=== PATIENT | male | born 1995 | race Caucasian/White ===

== ENCOUNTER 2018-04-13 18:46 | Emergency (ER) | payer OTHER, BC ==
[2018-04-13 18:50] VITALS: BP 114/93
[2018-04-13] MEDS ORDERED: HYDROcod/ACETAM 5/325 MG TABLET PO STA (19:05)
--- NOTE | 2018-04-13 19:06 | ED Physician Documentation ---
PD HPI LOWER EXT INJURY - Stated complaint Stated Complaint: TOE INJURY - Chief complaint Chief Complaint: Ext Problem - History obtained from History obtained from: Patient - History of Present Illness PD HPI LOW EXT INJURY LOCATION: Other (He dropped something heavy on his left big toe at work today with severe pain. No other injuries.) Review of Systems Constitutional: reports: Reviewed and negative Throat: reports: Reviewed and negative Cardiac: reports: Reviewed and negative PD PAST MEDICAL HISTORY - Past Medical History Past Medical History: No - Past Surgical History Past Surgical History: No - Present Medications Home Medications: Ambulatory Orders Medication Instructions Recorded Confirmed Ibuprofen [Motrin] 800 mg PO Q8H PRN #30 tablet 04/13/18 - Allergies Allergies/Adverse Reactions: Allergies Allergy/AdvReac Type Severity Reaction Status Date / Time No Known Drug Allergies Allergy Verified 04/13/18 18:50 - Social History Does the pt smoke?: No Smoking Status: Never smoker Does the pt drink ETOH?: Yes Does the pt have substance abuse?: Yes Substance Use and Type: Marijuana - Immunizations Immunizations are current?: Yes PD ED PE NORMAL - Vitals Vital signs reviewed: Yes - General General: Alert and oriented X 3, No acute distress - Extremities Extremities: Other (The proximal phalanx of the left big toe is very tender, no deformity or subungual hematoma, normal neurovascular status at the tip.) - Neuro Neuro: Alert and oriented X 3, Normal speech Results - Vitals Vitals: Vital Signs - 24 hr 04/13/18 18:48 Temperature 37.0 C Heart Rate 82 Respiratory 15 Rate Blood Pressure 114/93 H O2 Saturation 97 Oxygen O2 Source Room air - Rads (name of study) L great toe XR Radiology: EMP read contemporaneously (normal) PD MEDICAL DECISION MAKING - ED course ED course: He was given four Vicodin to go. Departure - Departure Disposition: 01 Home, Self Care Clinical Impression: Crushing injury of toe of left foot Qualifiers: Encounter type: initial encounter Qualified Code(s): S97.102A - Crushing injury of unspecified left toe(s), initial encounter Condition: Good Record reviewed to determine appropriate education?: Yes Instructions: ED Crush Injury Toe No Fx Prescriptions: Ibuprofen [Motrin] 800 mg PO Q8H PRN #30 tablet PRN Reason: PAIN &/OR FEVER Comments: Recheck with your doctor in 1 week if not better. Return if worse. Your blood pressure was elevated today on check into the emergency department. This does not mean that you have hypertension, it is a common phenomenon to come to the emergency department and have elevated blood pressure. I recommend that you see your primary care physician within the week to have it rechecked when you are feeling better. Forms: Activity restrictions
[2018-04-13] MEDS ORDERED: HYDROcod/ACET 5/325 Prepack 4 PO STA (19:39)
--- NOTE | 2018-04-13 19:59 | XRAY Preliminary Report ---
Exam: XR TOE(S) LT IMPRESSION: No fracture or subluxation of the left first toe. [facility] SITE ID: [id number]
--- NOTE | 2018-04-13 20:00 | XRAY Report ---
EXAM: LEFT TOE RADIOGRAPHY EXAM DATE: 04/13/2018 07:37 PM. CLINICAL HISTORY: Big toe inj. COMPARISON: None. TECHNIQUE: 3 views. FINDINGS: Bones: Normal. No fracture or bone lesion. Joints: Joint space and alignment appear satisfactory. Soft Tissues: There is soft tissue swelling. IMPRESSION: No fracture or subluxation of the left first toe. [facility] Referring Provider Line: [phone] SITE ID: [id number]
--- NOTE | 2018-05-05 15:25 | ED Physician Documentation ---
ED Addendum - Addendum Addendum: 05/05/18 15:24 He may return to work, full duty at this juncture. Shaun Edgar MD
== END 2018-04-13 20:11 | disposition home or self-care (01) ==
LOC: ED 18:46
DX: S97.112A Crushing injury of left great toe, initial encounter (principal); W20.8XXA Other cause of strike by thrown, projected or falling object, initial encounter; Y99.0 Civilian activity done for income or pay; R03.0 Elevated blood-pressure reading, without diagnosis of hypertension
CPT/HCPCS: 73660; 99283; A9270; 96365; 96375; 99284

== ENCOUNTER 2018-10-24 15:46 | Emergency (ER) | payer BC, OTHER ==
[2018-10-24 15:58] VITALS: BP 121/77
[2018-10-24] MEDS ORDERED: HYDROcod/ACETAM 5/325 MG TABLET PO STA (16:20)
--- NOTE | 2018-10-24 16:22 | ED Physician Documentation ---
PD HPI FEMALE - Stated complaint Stated Complaint: L TESTICLE PX - Chief complaint Chief Complaint: Abd Pain - History obtained from History obtained from: Patient - History of Present Illness Timing - onset: Other (2 days of left testicular pain without swelling. It waxes and wanes and is at times severe. It is worse to walk. It is worse to lift. He notes no swelling. He is not concerned about STDs.) Review of Systems Constitutional: denies: Fever, Chills Throat: reports: Reviewed and negative Cardiac: reports: Reviewed and negative Respiratory: reports: Reviewed and negative GI: reports: Reviewed and negative PD PAST MEDICAL HISTORY - Past Medical History Past Medical History: No - Past Surgical History Past Surgical History: No - Present Medications Home Medications: Ambulatory Orders Medication Instructions Recorded Confirmed Hydrocodone/Acetaminophen 1 - 2 each PO Q6H PRN #14 tablet 10/24/18 [Hydrocodon-Acetaminophen 5-325] RX: Doxycycline Hyclate 100 mg PO BID #30 capsule 10/24/18 - Allergies Allergies/Adverse Reactions: Allergies Allergy/AdvReac Type Severity Reaction Status Date / Time No Known Drug Allergies Allergy Verified 10/24/18 15:58 - Social History Does the pt smoke?: No Smoking Status: Never smoker Does the pt drink ETOH?: Yes Does the pt have substance abuse?: Yes - Family History Family history: reports: Non contributory - Immunizations Immunizations are current?: Yes PD ED PE NORMAL - Vitals Vital signs reviewed: Yes - General General: Alert and oriented X 3, No acute distress - HEENT HEENT: PERRL, EOMI - Neck Neck: Supple, no meningeal sign, No bony TTP - Cardiac Cardiac: RRR, No murmur - Respiratory Respiratory: No respiratory distress, Clear bilaterally - Abdomen Abdomen: Normal bowel sounds, Soft, Non tender - Male Male : Other (Testicles are not swollen. He has mild tenderness of the left superior testicle. Positive cremaster reflexes bilaterally. No hernia mass.) - Back Back: No CVA TTP, No spinal TTP - Derm Derm: Normal color, Warm and dry - Extremities Extremities: No deformity, No edema, No calf tenderness / cord - Neuro Neuro: Alert and oriented X 3, Normal speech - Psych Psych: Normal mood, Normal affect Results - Vitals Vitals: Vital Signs - 24 hr 10/24/18 15:54 Temperature 37.0 C Heart Rate 99 Respiratory 16 Rate Blood Pressure 121/77 O2 Saturation 99 Oxygen O2 Source Room air - Labs Labs: Laboratory Tests 10/24/18 10/24/18 10/24/18 16:30 16:35 16:35 WBC 5.5 RBC 4.81 Hgb 14.8 Hct 44.6 MCV 92.8 MCH 30.7 MCHC 33.1 RDW 13.3 Plt Count 181 MPV 9.5 Neut # (Auto) 2.5 Lymph # (Auto) 2.2 [place] # (Auto) 0.5 Eos # (Auto) 0.2 Baso # (Auto) 0.1 Absolute Nucleated RBC 0.01 Nucleated RBC % 0.1 Manual Slide Review Indicated Platelet Estimate NORMAL (130-450,000) Platelet Morphology 1+ LARGE PLATELETS RBC Morph Micro Appear NORMAL APPEARANCE Sodium 137 Potassium 4.2 Chloride 102 Carbon Dioxide 29 Anion Gap 6.0 BUN 14 Creatinine 0.8 Estimated GFR (MDRD) 120 Glucose 78 Calcium 9.1 Total Bilirubin 0.8 AST 30 ALT 16 Alkaline Phosphatase 57 Total Protein 7.5 Albumin 4.7 Globulin 2.8 Albumin/Globulin Ratio 1.7 Lipase 29 Urine Color YELLOW Urine Clarity HAZY Urine pH 8.0 H Ur Specific [place] 1.020 Urine Protein NEGATIVE Urine Glucose (UA) NEGATIVE Urine Ketones NEGATIVE Urine Occult Blood NEGATIVE Urine Nitrite NEGATIVE Urine Bilirubin NEGATIVE Urine Urobilinogen 0.2 (NORMAL) Ur Leukocyte Esterase NEGATIVE Urine RBC None Seen Urine WBC 0-3 Ur Squamous Epith Cells NONE SEEN Amorphous Sediment Few Urine Bacteria None Seen Ur Microscopic Review INDICATED Urine Culture Comments NOT INDICATED - Rads (name of study) Testicular sono Radiology: EMP read contemporaneously (negative) PD MEDICAL DECISION MAKING - ED course ED course: Clinically his presentation is consistent with epididymitis. There is no evidence of torsion clinically or on ultrasound. Departure - Departure Disposition: 01 Home, Self Care Clinical Impression: Acute epididymitis Condition: Good Record reviewed to determine appropriate education?: Yes Instructions: ED Epididymitis Prescriptions: RX: Doxycycline Hyclate 100 mg PO BID #30 capsule Hydrocodone/Acetaminophen [Hydrocodon-Acetaminophen 5-325] 1 - 2 each PO Q6H PRN #14 tablet PRN Reason: pain Comments: Return if pain is unbearable especially at rest, or if not better in the next couple of days. Discharge Date/Time: 10/24/18 19:01
[2018-10-24 16:47] LABS: BILIRUBIN,URINE NEGATIVE (NEGATIVE); GLUCOSE, URINE (UA) NEGATIVE (NEGATIVE); KETONES,URINE (UA) NEGATIVE (NEGATIVE); LEUKOCYTE ESTERASE, URINE NEGATIVE (NEGATIVE); NITRITE,URINE NEGATIVE (NEGATIVE); OCCULT BLOOD,URINE NEGATIVE (NEGATIVE); PROTEIN,URINE NEGATIVE (NEGATIVE); UROBILINOGEN,URINE 0.2 (NORMAL) E.U./dL (NORMAL)
[2018-10-24 16:52] LABS: CLARITY,URINE HAZY (CLEAR)
[2018-10-24 16:55] LABS: BASOPHILS # (AUTO) 0.1 10^3/uL (0.0-0.1); BASOPHILS % (AUTO) 1.2 %; EOSINOPHILS # (AUTO) 0.2 10^3/uL (0.0-0.7); EOSINOPHILS % (AUTO) 3.5 %; HGB - HEMOGLOBIN 14.8 g/dL (14.0-18.0); LYMPHOCYTES # (AUTO) 2.2 10^3/uL (1.5-3.5); LYMPHOCYTES % (AUTO) 40.3 %; MEAN CORPUSCULAR HEMOGLOBIN 30.7 pg (27.0-31.0); MEAN CORPUSCULAR HGB CONC 33.1 g/dL (32.0-36.0); MEAN CORPUSCULAR VOLUME 92.8 fL (80.0-94.0); MEAN PLATELET VOLUME 9.5 fL (7.4-11.4); MONOCYTES # (AUTO) 0.5 10^3/uL (0.0-1.0); MONOCYTES % (AUTO) 9.3 %; NEUTROPHILS # (AUTO) 2.5 10^3/uL (1.5-6.6); NEUTROPHILS % (AUTO) 45.7 %; PLT - PLATELET COUNT 181 10^3/uL (130-450); RED BLOOD COUNT 4.81 10^6/uL (4.70-6.10); RED CELL DISTRIBUTION WIDTH 13.3 % (12.0-15.0); WHITE BLOOD COUNT 5.5 x10^3/uL (4.8-10.8)
[2018-10-24 16:55] LABS: AMORPHOUS SEDIMENT,UR Few /LPF; BACTERIA,URINE None Seen /HPF (None Seen); RBC,URINE None Seen /HPF (0-5); SQUAMOUS EPITHELIAL CELL,UR NONE SEEN (<= Few)
[2018-10-24 17:11] LABS: ALBUMIN 4.7 g/dL (3.2-5.5); ALBUMIN/GLOBULIN RATIO 1.7 (1.0-2.2); BILIRUBIN,TOTAL 0.8 mg/dL (0.2-1.0); CALCIUM 9.1 mg/dL (8.5-10.3); CREATININE 0.8 mg/dL (0.6-1.2); TOTAL PROTEIN 7.5 g/dL (6.7-8.2)
[2018-10-24 17:25] LABS: PLATELET ESTIMATE, MANUAL NORMAL (130-450,000) (NORMAL); PLATELET MORPHOLOGY 1+ LARGE PLATELETS (NORMAL); RBC MORPHOLOGY (MULTIPLE) NORMAL APPEARANCE (NORMAL)
--- NOTE | 2018-10-24 18:33 | Ultrasound Report ---
Reason: L testicle pain Procedure Date: 10/24/2018 Accession Number: [id number] / [id number] Procedure: US - Testicle w/Doppler CPT Code: FULL RESULT: EXAM: SCROTAL ULTRASOUND EXAM DATE: 10/24/2018 06:00 PM. CLINICAL HISTORY: L testicle pain. COMPARISON: None. TECHNIQUE: Real-time scanning was performed with static images obtained. Color-flow images were utilized. FINDINGS: Right: Testis: 4.7 x 2.2 x 3.4 cm. The testicle parenchyma is mildly heterogeneous. No focal mass. Blood flow appears symmetric and within normal limits. Epididymis: 2.6 x 0.7 x 1.5 cm. There are 2 epididymal head cyst measuring 0.6 x 0.7 x 0.6 cm and 0.7 x 0.4 x 0.7 cm. Hydrocele: Small Varicocele: None. Left: Testis: 4.6 x 2.1 x 2.9 cm. The testicle parenchyma is mildly heterogeneous. No focal mass. Blood flow appears normal and symmetric. Epididymis: 2 x 0.7 x 0.7 cm. Normal size and echotexture. No mass or abnormal blood flow. Hydrocele: Small Varicocele: None. IMPRESSION: 1. No testicular mass or torsion. Testicles normal in size. 2. Small bilateral hydroceles. 3. Incidental epididymal head cysts in right epididymis. [facility]
[2018-10-24] MEDS ORDERED: DOXYCYCLINE 100 MG TABLET PO STA (18:51)
== END 2018-10-24 19:01 | disposition home or self-care (01) ==
LOC: ED 15:46
DX: N45.1 Epididymitis (principal); N43.3 Hydrocele, unspecified
CPT/HCPCS: 36415; 76870; 80053; 81001; 83690; 85025; 93975; 99282; 99283; A9270; 81003; 87086

== ENCOUNTER 2018-12-01 21:46 | Emergency (ER) | payer BC ==
[2018-12-01] MEDS ORDERED: ACETAMINOPHEN 325 MG TABLET PO STA (22:04)
[2018-12-01] MEDS ORDERED: ONDANSETRON ODT 4 MG TABLET TL STA (22:04)
--- NOTE | 2018-12-01 22:08 | ED Physician Documentation ---
History of Present Illness - Stated complaint Stated Complaint: HEAD PX - Chief complaint Chief Complaint: General - Additonal information Additional information: hx from pt 23 y/o male his head twice 11/26 slipped in shower and struck R parietal region 11/28 missed sitting in achair and struck occiput on corner of steel furniture no LOC but increasing [place]QU[place] since no midline neck pain, mild int L sided pain no new numbness watts weakness (his feet always feel numb after work 2/2 his boots but that was going on before his HIs) no blood thinners Review of Systems Constitutional: denies: Fever Eyes: denies: Loss of vision Ears: denies: Drainage/discharge Nose: denies: Epistaxis Cardiac: denies: Chest pain / pressure Respiratory: denies: Dyspnea GI: reports: Nausea. denies: Vomiting Musculoskeletal: denies: Neck pain Neurologic: reports: Headache, Head injury. denies: Focal weakness, Numbness Endocrine: denies: Easy bruising / bleeding PD PAST MEDICAL HISTORY - Past Surgical History Past Surgical History: No - Present Medications Home Medications: Ambulatory Orders Medication Instructions Recorded Confirmed Doxycycline Hyclate 100 mg PO BID #30 capsule 10/24/18 Hydrocodone/Acetaminophen 1 - 2 each PO Q6H PRN #14 tablet 10/24/18 [Hydrocodon-Acetaminophen 5-325] - Allergies Allergies/Adverse Reactions: Allergies Allergy/AdvReac Type Severity Reaction Status Date / Time No Known Drug Allergies Allergy Verified 12/01/18 21:55 - Social History Does the pt smoke?: No Smoking Status: Never smoker Does the pt drink ETOH?: Yes Does the pt have substance abuse?: Yes Substance Use and Type: Marijuana - Immunizations Immunizations are current?: Yes - POLST Patient has POLST: No PD ED PE NORMAL - Vitals Vital signs reviewed: Yes - General General: Alert and oriented X 3 - HEENT HEENT: PERRL, Ears normal (no hemotympanum or concepcion sign). No: Atraumatic (TTP but no step off or creptius or lac) - Neck Neck: No bony TTP - Cardiac Cardiac: RRR - Respiratory Respiratory: No respiratory distress - Abdomen Abdomen: Soft, Non tender - Neuro Neuro: Alert and oriented X 3 Eye Opening: Spontaneous Motor: Obeys Commands Verbal: Oriented GCS Score: 15 Results - Vitals Vitals: Vital Signs - 24 hr 12/01/18 21:53 Temperature 36.3 C L Heart Rate 80 Respiratory 18 Rate Blood Pressure 117/72 O2 Saturation 100 Oxygen O2 Source Room air PD MEDICAL DECISION MAKING - ED course ED course: pt has already tried wait and watch conservative management period of observation at home and sx are worsening and would have met head injury precautions criteria for return ER visit so proceeded with imaging Departure - Departure Disposition: Home, Self Care Clinical Impression: Head injury Qualifiers: Encounter type: initial encounter Qualified Code(s): S09.90XA - Unspecified injury of head, initial encounter Condition: Good Instructions: ED Head Injury Closed Sleep Mon Comments: Thankfully the CT scan of your head was fine. No skull fracture, brain bleeding or brain swelling. So it is safe for you to go home. Recommend motrin and tylenol for pain, zofran for vomiting. You should rest and take it easy for the next 48 hr. No contact sports, skiing, mountain biking or any other activity where you might hit your head again until you are feeling completely back to normal Return if worse Forms: Activity restrictions
--- NOTE | 2018-12-01 22:52 | CT Report ---
Reason: HI X 2 (R parietal and occipital) AQUINO [place] Procedure Date: 12/01/2018 Accession Number: [id number] / [id number] Procedure: CT - Head W/O CPT Code: FULL RESULT: EXAM: CT HEAD EXAM DATE: 12/01/2018 10:45 PM. CLINICAL HISTORY: Headache, nausea and vomiting after head injury. COMPARISON: None. TECHNIQUE: Multiaxial CT images were obtained from the foramen magnum to the vertex. Reformats: Sagittal and coronal. IV contrast: None. In accordance with CT protocol optimization, one or more of the following dose reduction techniques were utilized for this exam: automated exposure control, adjustment of mA and/or KV based on patient size, or use of iterative reconstructive technique. FINDINGS: Parenchyma: No intraparenchymal hemorrhage. No evidence of mass, midline shift, or CT findings of infarction. Fang-white differentiation is distinct. Extraaxial Spaces: Normal for age. No subdural or epidural collections identified. Ventricles: Normal in size and position. Sinuses and Orbits: Imaged paranasal sinuses, orbits, and mastoids show no significant abnormality. Bones: No evidence of fracture or calvarial defect. Other: None. IMPRESSION: No acute or focal intracranial abnormality. [facility]
[2018-12-01] MEDS ORDERED: ONDANSETRON ODT 4 MG Prepack 2 TL PRN (23:11)
[2018-12-01] MEDS ORDERED: oxyCODONE 5 MG TABLET PO STA (23:13)
[2018-12-01 23:32] VITALS: BP 109/69
== END 2018-12-01 23:32 | disposition home or self-care (01) ==
LOC: ED 21:46
DX: S09.90XA Unspecified injury of head, initial encounter (principal); W22.03XA Walked into furniture, initial encounter
CPT/HCPCS: 70450; 99283; A9270; Q0162

== ENCOUNTER 2019-02-17 08:00 | Outpatient (CLI) | payer BC | END 2019-02-17 23:59 | disposition home or self-care (01) | LOC: LAB.R 08:00 | PROVIDERS: ATTEND Physician Assistant Medical | DX: R30.0 Dysuria (principal) | CPT/HCPCS: 87491; 87591 ==